=== PATIENT | male | born 1955 | race Two or more races ===

== ENCOUNTER 2018-02-16 09:51 | Emergency (ER) | payer MEDICAID ==
[~2018-02-16] VITALS: Ht 175.3 cm; Wt 134.3 kg
[~2018-02-16 09:51] MED LIST: ASPI-498 OR; ATOR10TA52 PO; ENAL20TA70 PO; GLIP-116 PO; HYDR25TA4 PO; INSUINJ37 SC; METF-370 PO; METO25TA62 PO; METO50TA7 PO; ONGLYZA; TRAM50TA2 PO
[2018-02-16 10:43] LABS: Basophils # (auto) 0.1 uL; Basophils % (auto) 0.5 % (0.0-2.0); Eosinophils # (auto) 0.2 uL; Eosinophils % (auto) 1.5 % (0.0-7.0); Hematocrit 39.4 % (41.0-53.0); Lymphocytes # (auto) 1.4 uL; Lymphocytes % (auto) 12.1 % (10.0-50.0); Mean Corpuscular Hemoglobin 28.4 pg (28.0-32.0); Mean Corpuscular Volume 86.1 fL (80.0-100.0); Monocytes # (auto) 0.8 uL; Monocytes % (auto) 7.4 % (0.0-12.0); Neutrophils # (auto) 8.9 uL; Neutrophils % (auto) 78.5 % (37.0-80.0); Platelet Count (auto) 308 10^3/uL (140-450); Red Blood Cells 4.58 10^6/uL (4.5-5.90); Red Cell Distribution Width 14.6 % (11.8-14.3); White Blood Cell 11.4 10^3/uL (4.4-10.8)
[2018-02-16 11:10] LABS: Alanine Aminotransferase 34 U/L (16-61); Albumin 3.3 g/dL (3.4-5.0); Alkaline Phosphatase 77 U/L (45-117); Anion Gap 9 (5-15); Aspartate Aminotransferase 18 U/L (15-37); Bilirubin, Total 0.2 mg/dL (0.2-1.0); Blood Urea Nitrogen 15 mg/dL (7-18); Calcium 8.8 mg/dL (8.5-10.1); Carbon Dioxide 22 mmol/L (21-32); Chloride 107 mmol/L (98-107); GFR African American 135 mL/min; GFR Non-African American 112 mL/min; Glucose 94 mg/dL (74-106); Magnesium 1.7 mg/dL (1.6-2.6); Potassium 3.7 mmol/L (3.5-5.1); Sodium 138 mmol/L (136-145); Total Protein 7.5 g/dL (6.4-8.2)
[2018-02-16] MEDS ORDERED: cloNIDine HCL 0.1 MG TAB PO ONE (11:15)
[2018-02-16] MEDS ORDERED: FUROSEMIDE 40 MG/4 ML VIAL IV ONE (11:15)
[2018-02-16 12:00] VITALS: BP 177/78
== END 2018-02-16 13:39 | disposition home or self-care (01) ==
LOC: EDBD 09:51 → ER 09:51
DX: I11.0 Hypertensive heart disease with heart failure (principal); I50.9 Heart failure, unspecified; J40 Bronchitis, not specified as acute or chronic; I25.10 Atherosclerotic heart disease of native coronary artery without angina pectoris; E11.9 Type 2 diabetes mellitus without complications; F17.210 Nicotine dependence, cigarettes, uncomplicated; E78.5 Hyperlipidemia, unspecified; I25.2 Old myocardial infarction; Z79.4 Long term (current) use of insulin; Z79.82 Long term (current) use of aspirin; Z87.442 Personal history of urinary calculi
CPT/HCPCS: 36415; 71046; 80053; 83735; 83880; 84484; 85025; 93005; 93970; 96374; 99285; J1940

== ENCOUNTER 2022-07-24 14:24 | Inpatient (IN) | payer OTHER, MEDICAID ==
[~2022-07-24] VITALS: Ht 172.7 cm; Wt 103.9 kg
[~2022-07-24 14:24] MED LIST changes: -ENAL20TA70 PO; +ENAL20TA8 PO; -GLIP-116 PO; +GLIP10TA9 PO; +METO-6 PO; -METO25TA62 PO; +METO25TA93 PO; -METO50TA7 PO
[2022-07-24] MEDS ORDERED: SODIUM CHLORIDE 0.9% 1,000 ML IV ONE ×2 (15:15→16:00)
[2022-07-24 15:29] LABS: Basophils # (auto) 0.1 10 ^3/uL (0-0.2); Eosinophils # (auto) 0 10 ^3/uL (0-0.8); Lymphocytes # (auto) 0.3 10 ^3/uL (0.4-5.4); Monocytes # (auto) 0.9 10 ^3/uL (0-1.3); Red Blood Cells 3.38 10^6/uL (4.5-5.90)
[2022-07-24 15:31] LABS: Basophils % (auto) 0.9 % (0.0-2.0); Hemoglobin 10.4 g/dL (13.5-17.5); Lymphocytes % (auto) 2.1 % (10.0-50.0); Mean Corpuscular Hemoglobin 30.8 pg (28.0-32.0); Mean Corpuscular Hgb Conc. 30.6 g/dL (32.0-36.0); Mean Corpuscular Volume 100.6 fL (80.0-100.0); Monocytes % (auto) 5.7 % (0.0-12.0); Neutrophils # (auto) 14.3 10 ^3/uL (1.6-8.6); Neutrophils % (auto) 91.3 % (37.0-80.0); Red Cell Distribution Width 17.3 % (11.8-14.3); White Blood Cell 15.7 10^3/uL (4.4-10.8)
[2022-07-24 15:43] LABS: Calcium 8.7 mg/dL (8.5-10.1)
[2022-07-24 15:46] LABS: BUN/Creatinine Ratio 23.8; Bilirubin, Total 4.1 mg/dL (0.2-1.0); Total Protein 7.6 g/dL (6.4-8.2)
[2022-07-24 15:51] LABS: INR 1.01 (0.9-1.15); Partial Thromboplastin Time 26.4 sec (24.6-33.4)
[2022-07-24] MEDS ORDERED: SODIUM BICARBONATE 8.4% INJ 50ML SYRINGE IV ONE (16:00)
[2022-07-24] MEDS ORDERED: SODIUM ZIRCONIUM CYCL 10 GM PAK PO ONE (16:00)
[2022-07-24] MEDS ORDERED: CALCIUM GLUC 1,000mg/50ml-NS 50 ML IV ONE (16:00)
[2022-07-24] MEDS ORDERED: FUROSEMIDE 20 MG/2 ML VIAL IV ONE (16:00)
[2022-07-24] MEDS ORDERED: metroNIDAZOLE 500MG/100ML 100 ML IV ONE (16:00)
[2022-07-24] MEDS ORDERED: DEXTROSE (50%) 50ML SYRG IV ONE (16:00)
[2022-07-24] MEDS ORDERED: cefTRIAXone 1GM/50ML D5W 50 ML IV ONE (16:00)
[2022-07-24] MEDS ORDERED: ALBUTEROL SULF 2.5 MG/0.5ML(0.5%) NEB SOLN NEB ONE (16:00)
[2022-07-24] MEDS ORDERED: InsuLIN REG 1unit/0.01ml Soln (100units/ml) IV ONE (16:00)
[2022-07-24 16:33] LABS: Lactic Acid w/Reflex 2.3 mmol/L (0.4-2.0)
[2022-07-24] MEDS ORDERED: SODIUM CHLORIDE 0.9% 1,000 ML IV SCH (18:45)
[2022-07-24 20:45] LABS: Urine Bacteria FEW /hpf (None Seen); Urine Blood Negative /uL (Negative); Urine Specific Gravity 1.022 (1.001-1.035); Urine WBC 21 /hpf (0 - 3)
[2022-07-24 21:15] LABS: Protein, Urine 301.8 mg/dL (0.0-11.9)
[2022-07-24] MEDS: SODIUM BICARBONATE 50ML VIAL 100 ML in SOD CHL 0.45% 1,000 ML IV SCH (23:09)
[2022-07-24] MEDS: SODIUM ZIRCONIUM CYCL 10 GM PAK PO SCH (23:11)
[2022-07-25 05:44] LABS: Basophils # (auto) 0.1 10 ^3/uL (0-0.2); Basophils % (auto) 0.8 % (0.0-2.0); Eosinophils # (auto) 0 10 ^3/uL (0-0.8); Eosinophils % (auto) 0.1 % (0.0-7.0); Hematocrit 26.1 % (41.0-53.0); Hemoglobin 8.4 g/dL (13.5-17.5); Lymphocytes # (auto) 0.9 10 ^3/uL (0.4-5.4); Mean Corpuscular Hemoglobin 31.9 pg (28.0-32.0); Mean Corpuscular Volume 99.9 fL (80.0-100.0); Monocytes # (auto) 1.2 10 ^3/uL (0-1.3); Monocytes % (auto) 9.3 % (0.0-12.0); Neutrophils # (auto) 10.5 10 ^3/uL (1.6-8.6); Neutrophils % (auto) 82.8 % (37.0-80.0); Nucleated Red Blood Cells % 0.2 %; Red Blood Cells 2.62 10^6/uL (4.5-5.90); White Blood Cell 12.7 10^3/uL (4.4-10.8)
[2022-07-25] MEDS ORDERED: SODIUM CHLORIDE 0.9% 1,000 ML IV ONE (06:00)
[2022-07-25 06:05] LABS: Albumin 2.3 g/dL (3.4-5.0); Calcium 7.7 mg/dL (8.5-10.1)
[2022-07-25 06:10] LABS: BUN/Creatinine Ratio 21.4
[2022-07-25 06:17] LABS: Potassium 5.7 mmol/L (3.5-5.1)
[2022-07-25] MEDS: SODIUM ZIRCONIUM CYCL 10 GM PAK PO SCH ×2 (06:51→14:18)
[2022-07-25] MEDS: SODIUM BICARBONATE 50ML VIAL 100 ML in SOD CHL 0.45% 1,000 ML IV SCH (11:22)
[2022-07-25] MEDS: SODIUM BICARBONATE 50ML VIAL 50 ML in SOD CHL 0.45% 1,000 ML IV SCH ×2 (11:22→23:00)
[2022-07-25 12:38] LABS: Calcium 7.9 mg/dL (8.5-10.1); Potassium 5.4 mmol/L (3.5-5.1)
[2022-07-25] MEDS: DOPamine 1600MCG/ML D5W 250 ML IV SCH (14:19)
[2022-07-25 20:03] LABS: Potassium 4.9 mmol/L (3.5-5.1)
[2022-07-25 20:22] LABS: BUN/Creatinine Ratio 24.6; Calcium 7.6 mg/dL (8.5-10.1)
[2022-07-26] MEDS ORDERED: SODIUM ZIRCONIUM CYCL 10 GM PAK PO ONE (01:30)
[2022-07-26] MEDS: SODIUM ZIRCONIUM CYCL 10 GM PAK PO SCH (01:48)
[2022-07-26] MEDS: SODIUM BICARBONATE 50ML VIAL 50 ML in SOD CHL 0.45% 1,000 ML IV SCH ×4 (04:03→17:30)
[2022-07-26 05:00] VITALS: BP 111/51
[2022-07-26 05:44] LABS: Basophils # (auto) 0 10 ^3/uL (0-0.2); Basophils % (auto) 0.5 % (0.0-2.0); Eosinophils # (auto) 0.1 10 ^3/uL (0-0.8)
[2022-07-26 05:47] LABS: Eosinophils % (auto) 0.7 % (0.0-7.0); Hematocrit 21.8 % (41.0-53.0); Hemoglobin 7.4 g/dL (13.5-17.5); Lymphocytes % (auto) 10.1 % (10.0-50.0); Mean Corpuscular Hemoglobin 32.8 pg (28.0-32.0); Mean Corpuscular Volume 96.5 fL (80.0-100.0); Monocytes # (auto) 1.3 10 ^3/uL (0-1.3); Monocytes % (auto) 13.2 % (0.0-12.0); Neutrophils # (auto) 7.4 10 ^3/uL (1.6-8.6); Neutrophils % (auto) 75.5 % (37.0-80.0); Nucleated Red Blood Cells % 0.1 %; Red Blood Cells 2.26 10^6/uL (4.5-5.90); Red Cell Distribution Width 16.8 % (11.8-14.3); White Blood Cell 9.9 10^3/uL (4.4-10.8)
[2022-07-26 06:02] LABS: Calcium 7.2 mg/dL (8.5-10.1); Potassium 4.1 mmol/L (3.5-5.1)
[2022-07-26 06:10] LABS: BUN/Creatinine Ratio 27.9
[2022-07-26 08:00] VITALS: BP 129/47
[2022-07-26] MEDS: cefTRIAXone 1GM/50ML D5W 50 ML IV SCH (08:48)
[2022-07-26 09:00] VITALS: BP_SYST 129; BP_SYST 138; BP_DIAS 47; BP_DIAS 63
[2022-07-26 13:00] VITALS: BP 118/45
[2022-07-26] MEDS ORDERED: DEXTROSE (50%) 50ML SYRG IV PRN (13:00)
[2022-07-26] MEDS: DOPamine 1600MCG/ML D5W 250 ML IV SCH (13:15)
[2022-07-26 16:30] VITALS: BP 155/63
[2022-07-26] MEDS: ACCU-CHEK COMFORT CURVE STRIP VI SCH ×2 (18:11→22:12)
[2022-07-26] MEDS: InsuLIN REG 1unit/0.01ml Soln (100units/ml) SC SCH ×2 (18:13→22:13)
[2022-07-26 22:00] VITALS: BP 155/59
[2022-07-27] MEDS: SODIUM BICARBONATE 50ML VIAL 50 ML in SOD CHL 0.45% 1,000 ML IV SCH (02:30)
[2022-07-27 05:00] VITALS: BP 134/57
[2022-07-27] MEDS: ACCU-CHEK COMFORT CURVE STRIP VI SCH ×3 (06:29→17:00)
[2022-07-27] MEDS: InsuLIN REG 1unit/0.01ml Soln (100units/ml) SC SCH ×3 (06:31→17:00)
[2022-07-27 08:47] LABS: Basophils # (auto) 0.1 10 ^3/uL (0-0.2); Eosinophils # (auto) 0.1 10 ^3/uL (0-0.8); Eosinophils % (auto) 1.4 % (0.0-7.0); Hemoglobin 8.7 g/dL (13.5-17.5); Lymphocytes # (auto) 0.6 10 ^3/uL (0.4-5.4); Lymphocytes % (auto) 6.7 % (10.0-50.0); Mean Corpuscular Hgb Conc. 33.4 g/dL (32.0-36.0); Mean Corpuscular Volume 95.8 fL (80.0-100.0); Monocytes # (auto) 0.9 10 ^3/uL (0-1.3); Neutrophils # (auto) 7.7 10 ^3/uL (1.6-8.6); Neutrophils % (auto) 80.9 % (37.0-80.0); Red Blood Cells 2.72 10^6/uL (4.5-5.90); Red Cell Distribution Width 16.5 % (11.8-14.3); White Blood Cell 9.5 10^3/uL (4.4-10.8)
[2022-07-27 09:08] LABS: BUN/Creatinine Ratio 31.5; Calcium 8.4 mg/dL (8.5-10.1); Magnesium 2.2 mg/dL (1.6-2.6); Potassium 4.1 mmol/L (3.5-5.1)
[2022-07-27 09:17] VITALS: BP 173/63
[2022-07-27] MEDS: cefTRIAXone 1GM/50ML D5W 50 ML IV SCH (10:01)
[2022-07-27 11:11] VITALS: BP 171/70
[2022-07-27] MEDS ORDERED: LEVO-28 PO (11:13)
[2022-07-27 14:13] VITALS: BP 162/66
[2022-07-27 16:59] VITALS: BP 157/78
== END 2022-07-27 18:31 | disposition home or self-care (01) | DRG 682 ==
LOC: EDUNIT# 14:24 → EDBD 14:24 → ER 14:26 → OVERFLOW 18:31 → CENTRAL 07-25 22:20 → TELE-CENTR 07-25 22:36
PROVIDERS: ADMIT Internal Medicine; ATTEND Internal Medicine
DX: N17.0 Acute kidney failure with tubular necrosis (principal); U07.1 COVID-19; I13.0 Hypertensive heart and chronic kidney disease with heart failure and stage 1 through stage 4 chronic kidney disease, or unspecified chronic kidney disease; E11.22 Type 2 diabetes mellitus with diabetic chronic kidney disease; E78.5 Hyperlipidemia, unspecified; E87.5 Hyperkalemia; R33.9 Retention of urine, unspecified; Z60.2 Problems related to living alone; F17.210 Nicotine dependence, cigarettes, uncomplicated; K74.60 Unspecified cirrhosis of liver; E88.09 Other disorders of plasma-protein metabolism, not elsewhere classified; I25.10 Atherosclerotic heart disease of native coronary artery without angina pectoris; I50.9 Heart failure, unspecified; D63.1 Anemia in chronic kidney disease; N18.9 Chronic kidney disease, unspecified; Z82.49 Family history of ischemic heart disease and other diseases of the circulatory system; I25.2 Old myocardial infarction; Z83.3 Family history of diabetes mellitus; Z87.442 Personal history of urinary calculi
CPT/HCPCS: 36415; 36600; 71045; 74176; 76705; 80048; 80053; 81001; 82570; 82805; 82962; 83605; 83735; 83880; 84156; 84300; 84484; 85025; 85610; 85730; 87040; 87426; 93005; 94640; 96365; 96375; 97163; G0378; J0696; J1815; J3490